=== PATIENT | female | born 1990 | race Caucasian/White ===

== ENCOUNTER 2017-05-23 04:15 | Inpatient (IN) | payer OTHER ==
[~2017-05-23] VITALS: Ht 154.9 cm; Wt 53.5 kg
[~2017-05-23 04:15] MED LIST: COLACE100 MG PO; IBUPROFEN600 MG PO; PRAMET FA TAB1 EA PO; TYLENOL WITH C1 EACH PO
[2017-05-23 04:59] LABS: HEMOGLOBIN 12.8 gm/dl (12.3-15.3); RED BLOOD COUNT 3.97 M/UL (4.00-5.10); WHITE BLOOD COUNT 8.5 K/UL (4.5-11.0)
== END 2017-05-24 14:21 | disposition home or self-care (01) | DRG 775 ==
LOC: GENOP 04:15 → OB 04:37
PROVIDERS: Obstetrics & Gynecology; ADMIT Obstetrics & Gynecology
PROC: 10E0XZZ Delivery of Products of Conception, External Approach (ICD-10-PCS; principal; 2017-05-23)
PROC: 4A1HX4Z Monitoring of Products of Conception, Cardiac Electrical Activity, External Approach (ICD-10-PCS; 2017-05-23)
PROC: 3E0234Z Introduction of Serum, Toxoid and Vaccine into Muscle, Percutaneous Approach (ICD-10-PCS; 2017-05-23)
DX: O80 Encounter for full-term uncomplicated delivery (principal); Z3A.39 39 weeks gestation of pregnancy; Z37.0 Single live birth; Z88.0 Allergy status to penicillin
CPT/HCPCS: 36415; 82800; 85014; 85018; 85025; 85461; 86900; 86901; 90715; J2590; J2795; J3010; J7120

== ENCOUNTER → 2022-02-27 | Outpatient (CLI) | payer OTHER ==
[~2022-02-27] MED LIST changes: +SPRINTEC 28 DA1 EACH PO
== END ==
LOC: OPSV2 10:00
DX: Z01.812 Encounter for preprocedural laboratory examination (principal); N90.7 Vulvar cyst
CPT/HCPCS: 81001

== ENCOUNTER → 2022-03-08 | Day surgery (SDC) | payer OTHER ==
[~2022-03-08] MED LIST changes: +BACTRIM DS TAB1 EACH PO; +NAPROXEN500 MG PO; +PERCOCET 5/325 T1 EA PO
[2022-03-08 06:46] LABS: HEMOGLOBIN 14.3 gm/dl (12.3-15.3); RED BLOOD COUNT 4.68 M/UL (4.00-5.10); WHITE BLOOD COUNT 4.5 K/UL (4.5-11.0)
== END | disposition home or self-care (01) ==
LOC: OR 06:14
PROVIDERS: Obstetrics & Gynecology
DX: N90.7 Vulvar cyst (principal); N36.8 Other specified disorders of urethra; Z88.0 Allergy status to penicillin
CPT/HCPCS: 36415; 84703; 85027; J0690; J1100; J1885; J2001; J2405; J2704